=== PATIENT | female | born 1985 | race Caucasian/White ===

== ENCOUNTER 2018-11-01 11:17 | Day surgery (SDC) | payer BC ==
[~2018-11-01 11:17] MED LIST: BUPIVACAINE HCL/PF (5 MG/ML) 30 ML VIAL IJ ONE
[2018-11-01 11:26] VITALS: BMI 25.6
--- NOTE | 2018-11-01 11:32 | PDOC ---
History of Present Illness - General Chief Complaint: Pain Stated Complaint: ABD PAIN Time Seen by Provider: 11/01/18 11:32 History Source: Patient Exam Limitations: No Limitations - History of Present Illness Initial Comments: 11/01/18 11:59 33 year old female with PMH HSV, treated Chlamydia (x10 years ago) 8 weeks A0 presented to ED for pelvic pain since today. Pt stated her pain is located to her midline and left pelvic area. She described the pain as pressure, constant, worse with movement. She denied vaginal bleeding, chest pain , lightheadedness, shortness of breath. She stated she has not seen OB, has an appointment this coming Saturday. Allergies: NKDA Past History - Past Medical History Allergies/Adverse Reactions: Allergies Allergy/AdvReac Type Severity Reaction Status Date / Time No Known Allergies Allergy Verified 11/01/18 11:26 Home Medications: Ambulatory Orders Acetaminophen [Tylenol .Regular Strength -] 500 mg PO Q4H PRN #30 tablet Ibuprofen [Motrin -] 600 mg PO Q4H PRN #30 tablet 11/01/18 COPD: No - Suicide/Smoking/Psychosocial Hx Smoking History: Current every day smoker If you are a former smoker, when did you quit?: 2 weeks Information on smoking cessation initiated: No Review of Systems - Review of Systems Able to Perform ROS?: Yes Comments:: 11/01/18 12:01 General: denied fever, chills, night sweats, generalized weakness. HEENT: denied sore throat, rhinorrhea, ear pain. Heart: denied chest pain, palpitations, syncope, diaphoresis. Respiratory: denied shortness of breath, cough, sputum production, hemoptysis. Abdomen: admitted to abdominal pain, nausea. denied vomiting, diarrhea, constipation, blood in stool. : denied dysuria, increased urinary frequency, hematuria, urinary incontinence , flank pain. Back: denied back pain. Musculoskeletal: denied joint pain, muscle pain, joint swelling. Neurological: denied headache, dizziness, numbness, tingling, weakness. Skin: denied rash, laceration, abrasion. *Physical Exam - Vital Signs Last Vital Signs Temp Pulse Resp BP Pulse Ox 98 F 72 18 107/73 99 11/01/18 11:22 11/01/18 11:22 11/01/18 11:22 11/01/18 11:22 11/01/18 11:22 - Physical Exam Comments: 11/01/18 12:02 Constitutional: Well-nourished, Well-developed, appearing stated age. HEENT: head is normocephalic, atraumatic. EOMI. PERRLA. Neck: supple. Full ROM. Heart: regular rhythm. no murmurs, rubs or gallops. Lungs: clear to auscultation bilaterally. no crackles, rhonchi or wheezing. no stridor. Abdomen: soft, flat. tenderness to palpation of RLQ, LLQ and suprapubic area ( LLQ worst). palpation of RLQ reproduces pain in LLQ. normal bowel sounds. Pelvic: normal external genitalia. no blood in vault. no CMT. left sided adnexal tenderness. no right sided adnexal tenderness. cervix closed. Extremities: Peripheral pulses intact. No lower extremity edema. Neurological: CN 2-12 grossly intact. Moves all four extremities. Psych: awake, alert, oriented x3. Follows commands. Answers questions appropriately. Moderate Sedation - Procedure Monitoring Vital Signs: Procedure Monitoring Vital Signs Temperature 98 F 11/01/18 11:22 Pulse Rate 72 11/01/18 11:22 Respiratory Rate 18 11/01/18 11:22 Blood Pressure 107/73 11/01/18 11:22 O2 Sat by Pulse Oximetry (%) 99 11/01/18 11:22 ED Treatment Course - LABORATORY CBC & Chemistry Diagram: 11/01/18 11:49 11/01/18 11:49 Medical Decision Making - Medical Decision Making 11/01/18 12:03 33 year old female with no PMH 8 weeks A0 presented to ED for pelvic pain. Positive left sided adnexal tenderness. Last ate yesterday. Initial Vital Signs Temp Pulse Resp BP Pulse Ox 98 F 72 18 107/73 99 11/01/18 11:22 11/01/18 11:22 11/01/18 11:22 11/01/18 11:22 11/01/18 11:22 Afebrile. No tachycardia. No tachypnea. Mild hypotension - Consistent with No hypoxia on room air Labs ordered: CBC, CMP, lipase, beta quant, T/S, coags, UA/UC Imaging ordered: TVUS Medications ordered: tylenol IV EKG performed at 1310: rate 83, regular rhythm, normal axis, normal intervals, nonspecific ST changes. 11/01/18 12:51 Radiologist called, stated pt has ectopic with live HR 111. Pt's OBGYN Dr. Leela davis. CBC WBC 9.2 K/mm3 (4.0-10.0) 11/01/18 11:49 RBC 4.15 M/mm3 (3.60-5.2) 11/01/18 11:49 Hgb 13.2 GM/dL (10.7-15.3) 11/01/18 11:49 Hct 37.9 % (32.4-45.2) 11/01/18 11:49 MCV 91.3 fl (80-96) 11/01/18 11:49 MCH 31.7 pg (25.7-33.7) 11/01/18 11:49 MCHC 34.7 g/dl (32.0-36.0) 11/01/18 11:49 RDW 14.3 % (11.6-15.6) 11/01/18 11:49 Plt Count 284 K/MM3 (134-434) 11/01/18 11:49 MPV 8.5 fl (7.5-11.1) 11/01/18 11:49 Absolute Neuts (auto) 5.3 K/mm3 (1.5-8.0) 11/01/18 11:49 Neutrophils % 56.8 % (42.8-82.8) 11/01/18 11:49 Lymphocytes % 35.2 % (8-40) 11/01/18 11:49 Monocytes % 6.6 % (3.8-10.2) 11/01/18 11:49 Eosinophils % 0.9 % (0-4.5) 11/01/18 11:49 Basophils % 0.5 % (0-2.0) 11/01/18 11:49 Nucleated RBC % 0 % (0-0) 11/01/18 11:49 No leukocytosis. No anemia. Urine Test Results Urine Color Yellow 11/01/18 12:00 Urine Appearance Clear 11/01/18 12:00 Urine pH 7.0 (5.0-8.0) 11/01/18 12:00 Ur Specific P[place]roy 1.014 (1.010-1.035) 11/01/18 12:00 Urine Protein Negative (NEGATIVE) 11/01/18 12:00 Urine Glucose (UA) Negative (NEGATIVE) 11/01/18 12:00 Urine Ketones Negative (NEGATIVE) 11/01/18 12:00 Urine Blood Negative (NEGATIVE) 11/01/18 12:00 Urine Nitrite Negative (NEGATIVE) 11/01/18 12:00 Urine Bilirubin Negative (<2.0 mg/dL) 11/01/18 12:00 Ur Leukocyte Esterase Negative (NEGATIVE) 11/01/18 12:00 No evidence of UTI. 11/01/18 12:53 TVUS report: left adnexal ectopic of 6 weeks 1 day. heart rate 111 bpm. myomatous uterus. 11/01/18 12:[address] Swenson, who stated she cannot advise. She recommended calling OB field operations technician here. OB field operations technician paged. 11/01/18 13:[address] Soto, who stated she will come down to evaluate the patient. Pending eval. Beta quant pending. 11/01/18 13:22 Pt reassessed, resting comfortably, tearful. Pt offered more pain medication, pt refused. 11/01/18 13:33 CMP Sodium 134 mmol/L (136-145) L 11/01/18 11:49 Potassium 4.3 mmol/L (3.5-5.1) 11/01/18 11:49 Chloride 103 mmol/L (98-107) 11/01/18 11:49 Carbon Dioxide 26 mmol/L (21-32) 11/01/18 11:49 Anion Gap 5 MMOL/L (8-16) L 11/01/18 11:49 BUN 8 mg/dL (7-18) 11/01/18 11:49 Creatinine 0.6 mg/dL (0.55-1.3) 11/01/18 11:49 Creat Clearance w eGFR > 60 (>60) 11/01/18 11:49 Random Glucose 94 mg/dL (74-106) 11/01/18 11:49 Calcium 9.0 mg/dL (8.5-10.1) 11/01/18 11:49 Total Bilirubin 0.4 mg/dL (0.2-1) 11/01/18 11:49 AST 15 U/L (15-37) 11/01/18 11:49 ALT 17 U/L (13-61) 11/01/18 11:49 Alkaline Phosphatase 66 U/L (45-117) 11/01/18 11:49 Total Protein 7.7 g/dl (6.4-8.2) 11/01/18 11:49 Albumin 3.8 g/dl (3.4-5.0) 11/01/18 11:49 Lipase 206 U/L (73-393) 11/01/18 11:49 Beta HCG, Quant 4311.6 mIU/ml 11/01/18 11:49 Beta quant<5000 No electrolyte abnormalities. No MAIKOL No transaminitis. Normal lipase Type and screen = A+ Dr. Soto at bedside. 11/01/18 14:20 Pt initially refused surgery, stated she was worried she would have less chances of becoming again after losing 1 fallopian tube. Pt requested to call her OBGYN. Pt called OBGYN, who advised surgery to her, pt now will consent to surgery. Medications ordered: lactate ringers @100 cc/hour Dr. Soto informed. Pt admitted and will go to OR. Pt informed she will need to sign consent with physician performing the surgery. *DC/Admit/Observation/Transfer Diagnosis at time of Disposition: Ectopic - Discharge Dispostion Disposition: HOME Condition at time of disposition: Stable Decision to Admit order: Yes - Prescriptions - Referrals - Patient Instructions - Post Discharge Activity
[2018-11-01] MEDS ORDERED: ACETAMINOPHEN 1000 MG/100 ML VIAL (NON FORMULARY) IVPB ONE (12:05)
[2018-11-01 12:15] LABS: BASO % 0.5 % (0-2.0); EOS % 0.9 % (0-4.5); HEMATOCRIT 37.9 % (32.4-45.2); HEMOGLOBIN 13.2 GM/dL (10.7-15.3); LYMPH % 35.2 % (8-40); MCH 31.7 pg (25.7-33.7); MCHC 34.7 g/dl (32.0-36.0); MEAN CELL VOLUME 91.3 fl (80-96); MEAN PLT VOLUME 8.5 fl (7.5-11.1); MONO % 6.6 % (3.8-10.2); NEUT % 56.8 % (42.8-82.8); PLATELET COUNT 284 K/MM3 (134-434); RBC 4.15 M/mm3 (3.60-5.2); RDW 14.3 % (11.6-15.6); WHITE BLOOD COUNT 9.2 K/mm3 (4.0-10.0)
[2018-11-01 12:24] LABS: URINE APPEARANCE CLEAR; URINE BILIRUBIN NEGATIVE (<2.0 mg/dL); URINE COLOR YELLOW; URINE GLUCOSE (UA) NEGATIVE (NEGATIVE); URINE KETONE NEGATIVE (NEGATIVE); URINE LEUK ESTERASE NEGATIVE (NEGATIVE); URINE NITRITE NEGATIVE (NEGATIVE); URINE PROTEIN NEGATIVE (NEGATIVE); URINE UROBILINOGEN NEGATIVE mg/dL (0.2-1.0)
[2018-11-01] MEDS ORDERED: ACETAMINOPHEN INJECTION 100 ML IVPB ONE (12:34)
--- NOTE | 2018-11-01 12:54 | PDOC ---
Attending Attestation - Medical Decision Making 11/01/18 13:[address] Vogel at 1:16 pm. Case discussed at 1:22pm. <Janny Benton - Last Filed: 11/01/18 13:40> - Resident Resident Name: Kriss Chris - ED Attending Attestation I have performed the following: I have examined & evaluated the patient, The case was reviewed & discussed with the resident, I agree w/resident's findings & plan, Exceptions are as noted - HPI HPI: 11/01/18 12:46 The patient is a 33 year old female (A0), 8 weeks by dates with no significant past medical history who presents to the emergency department with pelvic pain for 2 weeks. The patient reports that she has been experiencing this intermittent pelvic pain for about 2 weeks. She states that this morning her pelvic pain got intense prompting her to come in today. The patient reports that she has not had any OB follow-up regarding her . She does endorse some slight nausea but denies vomiting. She denies any vaginal bleeding or discharge. She reports hx chlamydia for which she has been treated as well as genital herpes. Dneies lesions at this time. The patient denies any other symptoms or complaints. She denies any fever, chills, diarrhea, constipation or urinary symptoms. She denies any chest pain, shortness or breath, headache or dizziness. - Physicial Exam PE: 11/01/18 12:54 agree with resident exam - Medical Decision Making 11/01/18 12:55 33yo F currently 8 weeks by dates presents to the ED with progressive lower abd pain. Vitals wnl. Exam with L adnexal ttp. TVUS with L adnexal ectopic ~6 weeks. Case discussed with pt's primary OB (not on staff) who recommends consult here. Dr. Soto is on her way down to evaluate the pt. No free fluid in the abdomen, vitals are stable at this time. T&S pending. 11/01/18 14:08 Dr. Soto to take pt to OR, but pt is hesitant at this time, states she wants to call her family and personal OB first Discussed risks of delaying surgery such as ectopic rupture causing hemorrhage, disability, or even Will reassess 11/01/18 15:00 Pt amenable to go to OR Has been consented by Dr. Soto Is currently clinically stable Pt admitted to OR for surgical management <Librado Paul - Last Filed: 11/01/18 18:40>
[2018-11-01 13:11] LABS: INR 1.02 (0.83-1.09)
[2018-11-01 13:14] LABS: ACTIVATED PTT 29.3 SECONDS (25.2-36.5)
[2018-11-01 13:16] LABS: ALBUMIN 3.8 g/dl (3.4-5.0); ALK PHOS 66 U/L (45-117); ANION GAP 5 MMOL/L (8-16); BILIRUBIN,TOTAL 0.4 mg/dL (0.2-1); BLOOD UREA NITROGEN 8 mg/dL (7-18); CHLORIDE 103 mmol/L (98-107); CO2 26 mmol/L (21-32); CREATININE 0.6 mg/dL (0.55-1.3); GLUCOSE,RANDOM 94 mg/dL (74-106); LIPASE 206 U/L (73-393); POTASSIUM 4.3 mmol/L (3.5-5.1); SGOT/AST 15 U/L (15-37); SGPT/ALT 17 U/L (13-61); SODIUM 134 mmol/L (136-145); TOT PROT 7.7 g/dl (6.4-8.2)
--- NOTE | 2018-11-01 13:47 | CON.OBG ---
Consult Consult Specialty:: verification manager Referred by:: Librado Paul Reason for Consultation:: ectopic - History of Present Illness Chief Complaint: 33 yrs , LMP 09/07/18, 7 weeks gestation came to ER c/o LLQ pain since yesterday, stopped & again severe since today AM 910/10, nausea, no vomiting, no h/o dizziness or fainting spells. work up done in ER reported as [facility] [id number] : ut11.4 x11x8. cm, 2 approx myoma fundal & ant noted, heterogenous em, ovaries both normal outside UT in Left side ges sac with pole FHR 111bpm noted, no free fluid. ectopic pregn diagnosed. Blood type A Pos History of Present Illness: pt is not seen by her PMD for present pregn yet Pa 28-30 days reg cycle no h/o PID h/o Chlamydia treated 11-12 yrs ago Herpes AB positive in seum. 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 No: Endometriosis, PID ...LMP: 09/07/18 ...: Yes ...: 2 ...Para: 1 (06/30/2012 term, [facility] ) Heme/Onc: No: Anemia Infectious Disease: Yes: STD's (chlamydia 11 yrs ago ) Psych: No: Addictions, Anxiety, Bipolar, Depression, Panic, Psychosis, Schizophrenia, Other - Past Surgical History Past Surgical History: Yes: None - Alcohol/Substance Use Hx Alcohol Use: No History of Substance Use: reports: None - Smoking History Smoking history: Current every day smoker (3-4 cig) If you are a former smoker, when did you quit?: 2 weeks Home Medications - Allergies Allergies/Adverse Reactions: Allergies Allergy/AdvReac Type Severity Reaction Status Date / Time No Known Allergies Allergy Verified 11/01/18 11:26 - Home Medications Home Medications: Ambulatory Orders NK [No Known Home Medication] 11/01/18 Physical Exam-LOAN MANAGER Vital Signs: Vital Signs Temperature 98 F 11/01/18 11:22 Pulse Rate 72 11/01/18 11:22 Respiratory Rate 18 11/01/18 11:22 Blood Pressure 107/73 11/01/18 11:22 O2 Sat by Pulse Oximetry (%) 99 11/01/18 11:22 Selected Entries 11/01/18 11:22 Weight 140 lb Constitutional: Yes: Well Nourished, Moderate Distress Eyes: Yes: WNL HENT: Yes: WNL, Normocephalic Neck: Yes: WNL Cardiovascular: Yes: WNL, Regular Rate and Rhythm Respiratory: Yes: WNL Gastrointestinal: Yes: WNL, Normal Bowel Sounds. No: Distention ...Rectal Exam: Yes: Deferred Renal/: Yes: WNL. No: CVA Tenderness - Left, CVA Tenderness - Right Pelvis: Yes: Tenderness (lower abdomen LLQ>RLQ) External Genitalia: Yes: Normal Internal Exam Deferred: Yes Vaginal Exam: Yes: Normal, Other (tender). No: Bleeding Cervix: Yes: Normal, Cerv Motion Tenderness. No: Bleeding Uterus: Yes: Normal, Tender, Other (unable to director corporate exact size) Adnexa: Tender: Bilateral (unable to detrmine mass due to tenderness ) Breast(s): Yes: Other (NOT Examined) Musculoskeletal: Yes: WNL Extremities: Yes: WNL. No: Calf Tenderness Edema: No Integumentary: Yes: WNL, Tattoos Neurological: Yes: WNL, Alert, Oriented ...Motor Strength: WNL Psychiatric: Yes: WNL, Alert, Oriented Labs: CBC, BMP 11/01/18 11:49 11/01/18 11:49 Laboratory Tests 11/01/18 11/01/18 11/01/18 11:49 11:49 12:45 PT with INR 12.00 INR 1.02 PTT (Actin FS) 29.3 Beta HCG, Quant 4311.6 Blood Type A POSITIVE Problem List - Problems (1) Left tubal Code(s): O00.102 - LEFT TUBAL WITHOUT INTRAUTERINE Assessment/Plan 33 yrs , 7 weeks by GA , by sonogram Left adnexal ( TUBE) 6 weeks gestation with pole with positive heart rate 111.no free fluid tubal pregn unruptured Plan laproscopic left salpingectomy & necessary procedures, possible laprotomy r/b/a explained not ltd to hemorrhage, infection, injury bladder bowel, etc possiblity of blood transfusion discussed
[2018-11-01] MEDS ORDERED: LACTATED RINGERS SOLUTION 1,000 ML/1,000 ML INFUS.BAG IV SCH (14:30)
[2018-11-01] MEDS ORDERED: fentaNYL CITRATE 250 MCG/5 ML VIAL ONE (16:30)
[2018-11-01] MEDS ORDERED: ROCURONIUM BROMIDE 50 MG/5 ML VIAL ONE (16:30)
[2018-11-01] MEDS ORDERED: PROPOFOL 20 ML ONE ×2 (16:30)
[2018-11-01] MEDS ORDERED: LIDOCAINE HCL/PF 2% SDV 5ML VIAL ONE (16:30)
[2018-11-01] MEDS ORDERED: ceFAZolin SODIUM 1 GM VIAL IVPB ONE (16:41)
[2018-11-01] MEDS ORDERED: BUPIVACAINE HCL/PF (5 MG/ML) 30 ML VIAL IJ ONE (17:20)
[2018-11-01] MEDS ORDERED: NEOSTIGMINE METHYLSULFATE 0.5 MG/1 ML - 10 ML MDV ONE (17:38)
[2018-11-01] MEDS ORDERED: ONDANSETRON 4 MG/2 ML VIAL IVPUSH PRN (17:59)
[2018-11-01] MEDS ORDERED: PROMETHAZINE HCL 25 MG/1 ML VIAL IVPUSH PRN (17:59)
[2018-11-01] MEDS ORDERED: oxyCODONE HCL 5 MG TABLET PO PRN (17:59)
[2018-11-01] MEDS ORDERED: ACETAMINOPHEN 325 MG TABLET (FP) PO PRN (18:02)
[2018-11-01] MEDS ORDERED: IBUPROFEN 400 MG TABLET (FP) PO PRN (18:02)
[2018-11-01] MEDS ORDERED: IBUPROFEN 800 MG/8 ML IJ IVPB PRN (18:05)
--- NOTE | 2018-11-01 18:18 | OP ---
Operative Note - Note: Operative Date: 11/01/18 Pre-Operative Diagnosis: left tubal ectopic Operation: laproscopic left salpingectomy, lysis of adhesions , d&C Findings: uterus large soft , apperars lobulated ( unable to distinguish seprately from fundus , or fibroid ) fundus more on left side , small ant fibroid 2cm possible adenomyosis also suspected cul de sac blood seen both adnexa adherent to uterus posteriorly by adhesions both ovaries normal RT tube appears normal but tubo uterine adhesions seen Left tube distended in distal amullary tube about 3-4 cm , , fimbriae free, blood leaking through fimbrial end adhesions between uterus & left tube lysis was done , tube was freed brought out of cul de sac , tube seprated at media end & from mesosalpinx by using ligasure hemostasis noted Post-Operative Diagnosis: Other (adnexal adhesions , fibroid uterus) Surgeon: Georgina Soto Flamer Sealer: Bill Foy Anesthesiologist/DISPATCHER CHIEF OIL: Jaime Pineda Anesthesia: General Specimens Removed: left tube with contents . Em curetings Estimated Blood Loss (mls): 50 Drains, Volume Out (mls): 100 Fluid Volume Replaced (mls): 700 (2 gm iv ancef given in OR ) Operative Report Dictated: Yes
[2018-11-01] MEDS ORDERED: LACTATED RINGERS SOLUTION 1000 ML INFUS.BAG IV SCH (19:00)
[2018-11-01] MEDS ORDERED: LACTATED RINGERS SOLUTION 1,000 ML IV SCH (21:05)
--- NOTE | 2018-11-01 21:59 | EKG ---
Test Reason : Blood Pressure : / mmHG Vent. Rate : 083 BPM Atrial Rate : 083 BPM P-R Int : 136 ms QRS Dur : 082 ms QT Int : 358 ms P-R-T Axes : 042 050 027 degrees QTc Int : 420 ms NORMAL SINUS RHYTHM NORMAL ECG NO PREVIOUS ECGS AVAILABLE Confirmed by MARINE SANTIAGO MD ([id number]) on 11/01/2018 9:58:29 PM Referred By: Confirmed By:MARINE SANTIAGO MD
[2018-11-01] MEDS ORDERED: IBUPROFEN 600 MG TABLET (FP) PO PRN (22:18)
[2018-11-01 22:39] VITALS: BP 119/69; PULSE 88; TEMP 98.5
--- NOTE | 2018-11-02 12:54 | OP ---
DATE OF OPERATION: 11/01/2018 PREOPERATIVE DIAGNOSIS: Left tubal ectopic . OPERATION DONE: Laparoscopic left salpingectomy, lysis of adhesions, and dilation and curettage. SURGEON: Georgina Soto MD BARIATRIC COORDINATOR SURGEON: Bill Foy MD ANESTHESIOLOGIST: Jaime Pineda MD ANESTHESIA: General. FINDINGS: This is a 33-year-old, 2, para 1-0-0-1, LMP September 07, 2018 , at 7 weeks gestation, was diagnosed by ultrasound with left tubal in the left adnexa adjacent to the ovary is seen, gestational sac with a pole, with a heart positive to 113 beats per minute, and no free fluid, and fibroids seen in the uterus, heterogeneous endometrium. Patient's hCG was 4133 units. Blood type is A positive. PROCEDURE: The patient is taken to the operating room table, general anesthesia was given. Modified lithotomy position was given. Abdomen was prepped with ChloraPrep, perineum and vagina was prepped with Betadine, and patient was draped in the usual manner. Timeout was done. Pelvic examination was done. Uterus was enlarged about 10 weeks size. Cervix was posterior. Adnexa was not palpable. Speculum was put, anterior lip of the cervix was held with a single-tooth tenaculum. Uterocervical length was 9 cm. A HUMI cannula was introduced into the uterine cavity. Tenaculum was removed. Pritchett catheter was placed. Gloves were changes. The position was adjusted again, and we proceeded with pelviscopy. A small incision was made in the umbilicus on midline and near the umbilicus about 5 mm. Veress needle was introduced into the peritoneal cavity and CO2 was insufflated in the peritoneal cavity. Then the lighted trocar was introduced, 5 mm from the umbilicus. Intraperitoneal insertion was confirmed. Then the trocar was removed, laparoscope was introduced through the cannula. There was omentum. The bowels were covering the uterus. The uterus was brought up and the fundus was a lobulated, a round very soft fundus and posteriorly it was appearing as lobulated uterus , it appeared to be possible fibroid in the left side cornual, which is soft, or adenomyosis, unable to differentiate. It was not a very uniform uterus. Posteriorly, both adnexa were adherent to the posterior aspect of the uterus by adhesions. The lysis of adhesions was done on the left side, and also there was some blood in the cul-de-sac. First the left tube was carefully freed from the posterior of the uterus and from the adhesions between the ovary and the tube were freed and the tube was brought up. Before doing the procedure, we had put the 10-mm trocar and cannula from the left lower quadrant and 5-mm trocar and cannula from right lower quadrant, and all the inspected findings were noted as mentioned before. Then, with a grasper, the tube was held, from the left side, and with LigaSure, first the medial end of the tube, just below the cornua, the tube was cauterized and cut with LigaSure, and then just below that, the mesosalpinx also was cauterized and cut. Then the remaining free fimbrial end was held and the rest of the tube, below the distended portion of the tube, the mesosalpinx was held, and with the LigaSure, cauterized and cut, end of the tube was freed. Hemostasis was checked. The specimen was placed anterior to the uterus. Suction and irrigation was done from the cul-de-sac. About 50 mL of blood was aspirated, with clots. Irrigation was done. Then the right side tube, adhesions from posterior to the uterus in between the bowels, were freed with the LigaSure. Right tube appeared to be normal. Upper abdomen was checked, it was normal. Endobag was introduced from the left side, and the specimen was removed. Then Sneha-Nathan probe was put and, with the needle guided with laparoscopy, 2 sutures were taken into that incision from the peritoneum, with Vicryl 0, and they were tied. Then the skin was closed with 3-0 Biosyn suture. All the skin sutures were taken with 3-0 Biosyn suture. Before skin sutures, Marcaine was infiltrated. Band- Aid was applied. Then readjustment was done since the uterus was soft, so we decided to do D&C. The patient was repositioned in lithotomy position and then HUMI cannula was removed, weighted speculum was introduced. Anterior lip of the cervix was held with a single-tooth tenaculum. Cervix was dilated with a number 10 dilator. Uterine cavity was already 9 cm in length. Curetting was done. Very minimal scanty tissue was obtained. The instruments were removed. The Pritchett output was 100 mL, and Pritchett will be removed before transferring the patient from the recovery room. Estimated blood loss was 50 mL, which was already seen in the cul-de-sac. Patient tolerated procedure well. She was transferred to the recovery room in stable condition. She received 2 g of IV Ancef prior to starting the case. Ernie [id number] MTDD
--- NOTE | 2018-11-04 10:17 | PATH ---
Surgical Pathology Report Patient Name: CARMEN SANTACRUZ [facility]. Rec. #: [id number] /Age/Gender: 1985 (Age: 33) / F Account: [id number] Location: AMBULATORY SURG Taken: 11/01/2018 Received: 11/03/2018 Reported: 11/04/2018 Physicians: Georgina Soto M.D. PHYSICIAN EMERGENCY DEPT Specimen(s) Received A: LEFT FALLOPIAN TUBE B: ENDOMETRIAL CURETTINGS Clinical History Left tubal ectopic Final Diagnosis A. FALLOPIAN TUBE, LEFT, ECTOPIC, LAPAROSCOPIC SALPINGECTOMY: CHORIONIC VILLI IN A BACKGROUND OF HEMORRHAGE PRESENT WITHIN THE FALLOPIAN TUBE, CONSISTENT WITH ECTOPIC . B. ENDOMETRIAL CURETTINGS, DILATION AND CURETTAGE: GESTATIONAL ENDOMETRIUM AND BENIGN CERVICAL TISSUE. Electronically Signed Lynn Salazar M.D. Gross Description A. Received in formalin labeled "left fallopian tube," is a 4.8 cm in length dilated, fimbriated fallopian tube. The outer surface is lanier-pace and smooth. Sectioning reveals a dilated lumen containing red-brown blood clot. No definitive villus tissue or somatic tissue is identified. House Carpenter Helper sections are submitted in 3 cassettes as follows: 1-fimbria; 8-7-rglncefjawinft cross sections of fallopian tube. B. Received in formalin labeled "endometrial curettings," is a 1.8 x 1.5 x 0.3 cm aggregate of lanier-brown soft tissue fragments. The formalin is filtered and the specimen is entirely submitted in one cassette. /11/03/201811/03/2018
== END 2018-11-01 22:55 | disposition home or self-care (01) ==
LOC: JER 11:17 → JASUSAT 14:19 → J3W 16:00 → JASUSAT 22:55
PROVIDERS: ATTEND Obstetrics & Gynecology
PROC: 10T24ZZ Resection of Products of Conception, Ectopic, Percutaneous Endoscopic Approach (ICD-10-PCS; principal; 2018-11-01 15:30)
PROC: 0UB64ZZ Excision of Left Fallopian Tube, Percutaneous Endoscopic Approach (ICD-10-PCS; 2018-11-01 15:30)
DX: O00.102 Left tubal pregnancy without intrauterine pregnancy (principal)
CPT/HCPCS: 36415; 76817-TC; 80053; 81003; 83690; 84702; 85025; 85610; 85730; 86850; 86900; 86901; 87086; 88305-TC; 93005; 93010; 94760; 99284-25; J0131